=== PATIENT | female | born 1990 | race Caucasian/White ===

== ENCOUNTER 2018-01-04 17:27 | Emergency (ER) | payer MEDICAID ==
--- NOTE | 2018-01-04 18:30 | PD ---
HPI Chief Complaint Abdominal pain Date Seen: Jan 04, 2018 Time Seen: 18:23 Travel History International Travel<30 Days: No Contact w/Intl Traveler<30Days: No Known Affected Area: No History of Present Illness HPI 27-year-old 3 para 0 at 23+ weeks gestation who reports that about 1 PM she had sharp epigastric pain the last just a few seconds. This seemed repeat itself every 15 minutes or so since that time and she comes for evaluation of this. She denies any fever chills, nausea or vomiting, diarrhea or change in bowel habits. She had eaten about 1 hour prior to this episode. She ate again at 5 PM. History Past Medical History Medical History: Denies Significant Hx Obstetric History Obstetric History 2 prior AB's Current has been uncomplicated with Dr. Jim providing care Past Surgical History Narrative Surgical Oral surgery Family History Family History: Negative Social History Alcohol Use: No Tobacco Use: No Substance Abuse: No Review of Systems Except as stated in HPI: all other systems reviewed are Neg Physical Exam Narrative GENERAL: Well-nourished, well-developed patient. SKIN: Warm and dry. HEAD: Normocephalic and atraumatic. EYES: No scleral icterus. No injection or drainage. ENT: No nasal drainage noted. Mucous membranes pink. Airway patent. NECK: Supple, trachea midline. No JVD. CARDIOVASCULAR: Regular rate and rhythm without murmurs, gallops, or rubs. RESPIRATORY: Breath sounds equal bilaterally. No accessory muscle use. ABDOMEN/GI: Abdomen soft, non-tender, bowel sounds present, no rebound, no guarding , no tenderness over the right upper quadrant Gravid to [-] weeks size Fundal Height: [-25] GENITOURINARY: External Genitalia: intact and normal in appearance BUS glands: [-] Cervix: [-] Dilatation: [-] Effacement: [-] Station: [-] Presentation: [-] Membranes: [intact or ruptured] Uterine Contractions: [-] FHT's: Category: [1-] Baseline: [-] Reactive: [-] Variability: [-] Decels: [-] EXTREMITIES: No cyanosis or edema. BACK: Nontender without obvious deformity. No CVA tenderness. NEUROLOGICAL: Awake and alert. Motor and sensory grossly within normal limits. Five out of 5 muscle strength in all muscle groups. Normal speech. MDM Medical Record Reviewed: Yes Narrative Course / MDM Assessment: 23+ week intrauterine with epigastric pain thought to be of GI origin Plan: We discussed obtaining some simethicone and an H2 [place]. She will avoid gas-forming foods and rest her bowel with just liquids arrest of today. Diagnosis Diagnosis: Primary Impression: 23 weeks gestation of Additional Impression: Abdominal pain affecting Disposition: 01 DISCHARGE HOME Condition: Good Tom Diaz MD Jan 04, 2018 18:30
== END 2018-01-04 18:47 | disposition home or self-care (01) ==
LOC: HOBED 17:27
DX: O26.892 Other specified pregnancy related conditions, second trimester (principal); R10.13 Epigastric pain; Z3A.23 23 weeks gestation of pregnancy
CPT/HCPCS: 99282

== ENCOUNTER 2018-04-22 10:53 | Inpatient (IN) ==
[2018-04-26] MEDS ORDERED: Acetaminophen 325 MG Tablet PO PRN
[2018-04-26] MEDS ORDERED: Simethicone 80 MG Chew Tablet PO PRN
[2018-04-26] MEDS ORDERED: Senna/Docusate Sodium 8.6/50 MG Tablet PO PRN
[2018-04-26] MEDS ORDERED: Ibuprofen 600 MG Tablet PO PRN
== END 2018-04-25 17:28 | disposition home or self-care (01) ==
LOC: H1EA 11:35
PROVIDERS: ADMIT Obstetrics & Gynecology; ATTEND Obstetrics & Gynecology